=== PATIENT | male | born 1985 | race Caucasian/White ===

== ENCOUNTER 2017-01-23 14:28 | Emergency (ER) | payer OTHER ==
[~2017-01-23] VITALS: Ht 187.9 cm; Wt 108.9 kg
[~2017-01-23 14:28] MED LIST: CIPROFLOXACIN500 MG PO; MOTRIN800 MG PO; TOBRADEX 0.1%-0.5 ML OPH
[2017-01-23 14:44] VITALS: BP 146/98
[2017-01-23] MEDS ORDERED: CYCLOBENZAPRINE5 M3 PO (16:16)
[2017-01-23] MEDS ORDERED: PREDNISONE10 MG PO (16:16)
== END 2017-01-23 16:19 | disposition home or self-care (01) ==
LOC: ED 14:28
DX: M54.5 Low back pain (principal); F17.200 Nicotine dependence, unspecified, uncomplicated; Z88.1 Allergy status to other antibiotic agents

== ENCOUNTER 2017-11-20 16:02 | Inpatient (IN) | payer OTHER ==
[~2017-11-20] VITALS: Ht 190.5 cm; Wt 95.7 kg
--- NOTE | ~2017-11-20 | PR ---
[place], [place] PROGRESS NOTE NAME: BERNARDO ROBERTS UNIT #: [id number] ROOM: 405 DOCTOR: STANISLAV MURRAY MD,ADONAY BIRTHDATE: [birth year] DOS: 11/24/2017 SUBJECTIVE: He has been noted comfortable at this time, continued to show gradual reduction and improvement in the respiratory symptoms of coughing, shortness of breath. There were symptoms of wheezing described. There were symptoms of abdominal pain. OBJECTIVE: VITAL SIGNS: Normal temperature, respiratory rate 18, heart rate 60, blood pressure 131/81. Pulse oxygen saturation on room air 94% saturation. HEENT: No acute change. NECK: No acute change. CARDIOVASCULAR: S1, S2 is audible. LUNGS: The patient was noted without any wheeze or crackle. Good breath sounds noted bilaterally. ABDOMEN: Soft, nontender. EXTREMITIES: Without any acute edema. IMPRESSION: The patient with improving acute pneumonia, clinically and radiologically with improving exacerbation of bronchial asthma and chronic obstructive pulmonary disease. PLAN OF TREATMENT: No changes in the plan for the patient except recommendation of possible home discharge on oral medication would be considered. In the meantime, continue other therapy, plan of management as in progress. Usual care, other supportive plan of therapy and care. ADONAY COLORADO MD CM:PNTRANS [id number] ADONAY MURRAY MD 11/25/17 0143 interface
--- NOTE | ~2017-11-20 | CON ---
[place], [place] REPORT OF CONSULTATION NAME: BERNARDO ROBERTS UNIT #: [id number] ROOM: 405 DOCTOR: STANISLAV MURRAY MDADONAY BIRTHDATE: [birth year] DOS: 11/22/2017 PULMONARY CONSULTATION EVALUATION MANAGEMENT CONSULTATION REQUESTED BY: Hospitalist Services. REASON FOR CONSULTATION: I was asked to assess the patient for acute pneumonia. HISTORY OF PRESENT ILLNESS: This is a 32-year-old white male patient who has been admitted to the hospital under the care of the Hospitalist Services. The patient came into the hospital stating having ongoing symptoms of fever and chills with a cough and sore throat for the past 3 to 4 days. The symptoms had been noted worsening. The patient denies any symptoms of chest pain. The symptoms of shortness breath was reported with that, but there was no wheezing. The patient was sent to the ER from the [facility] for current ongoing acute symptom assessment. He has been admitted to the hospital currently for the medical management of acute pneumonia. REVIEW OF SYSTEMS: CONSTITUTIONAL SYMPTOMS: He was not feeling well, complaining of fatigue and tiredness with fever and chills at home and decreased appetite. EYES: Denies any burning, redness, tenderness. EARS, NOSE, THROAT SYMPTOMS: Denies sore throat, hoarseness, otalgia, postnasal drainage or epistaxis. CARDIOVASCULAR: Denies any angina pain, edema, pain of the lower extremities. GASTROINTESTINAL: There were symptoms of nausea and vomiting, this has been resolved. GENITOURINARY: Denies dysuria, suprapubic pain, or hematuria. MUSCULOSKELETAL: Denies acute joint pain, redness, or tenderness. SKIN: Denied lesions or rashes. CENTRAL NERVOUS SYSTEM: Dizziness, headache, diplopia with general weakness was reported. Remaining systems were reviewed. They were noted all negative. PAST MEDICAL HISTORY: Noted with a history of general anxiety disorder and depression. SOCIAL HISTORY: The patient stated that he is , lives at home, half a pack of cigarettes per day active use was reported and previously he smoked a pack of cigarettes per day as well. He does not have any children. Denies any occupation related to the dust exposure or other chemicals previously. FAMILY HISTORY: Both parents has been living without any major medical illnesses. HOME MEDICATIONS: Noted as none. DRUG ALLERGY HISTORY: 1. NOTED ALLERGY TO THE [facility]. [place], [place] REPORT OF CONSULTATION NAME: BERNARDO ROBERTS UNIT #: [id number] ROOM: 405 DOCTOR: STANISLAV MURRAY MD,ADONAY BIRTHDATE: [birth year] 2. IVP DYE. 3. DOXYCYCLINE. PHYSICAL EXAMINATION: GENERAL: This is a 32-year-old white male patient currently sitting on his bed without any acute distress at time of assessment. Height of 6 feet 2 inches, weight of 217 pounds, BMI 26. VITAL SIGNS: Temperature noted 101 degree Fahrenheit on admission of 11/20/2017 and gradually noted afebrile, respiratory rate 20, heart rate 55-68 noted 107 on admission, blood pressure 142/86 to 135/62. Pulse oxygen saturation on room air was 99%, 91% saturation. HEENT: Head was atraumatic. Eyes nonicterus. NECK: Supple. CARDIOVASCULAR: S1, S2 audible. LUNGS: The patient was noted without any wheeze or crackles at the present time. ABDOMEN: Soft, flat, nontender. Bowel sounds present. SKIN: No lesions or rashes. MUSCULOSKELETAL: Without any acute deformities. CENTRAL NERVOUS SYSTEM: Cranial nerves 2-12 intact. No focal deficit. LABORATORY DATA: CBC on 11/20/2017 on admission of WBC count 13.4, hemoglobin and hematocrit normal, platelet count normal. CMP of 31, glucose 108, BUN and creatinine were normal, potassium 3.4. Troponin 3 sets on admission were normal. CBC that was done yesterday normal. PT/INR normal yesterday. CMP yesterday noted essentially normal kidney function and the LFTs, CBC today: WBC count 17.6, hemoglobin 13.1, hematocrit 39.2, platelet count was normal. BMP this morning, glucose 157. Remaining labs were normal. The chest x-ray that was done on 11/20/2017 does not show any visible pulmonary infiltration. The CT scan of the chest on 11/20/2017 without contrast was noted with a small patchy infiltration in the right lower lung without any other acute abnormalities. IMPRESSION: 1. The patient was currently admitted to the hospital with acute pneumonia involving the right lower lobe with fever and chills. 2. Possible exacerbation of chronic obstructive pulmonary disease as well/ bronchial asthma with past history of nicotine dependence. PLAN OF MANAGEMENT: The patient was getting high dose Solu-Medrol at this time, the dose will be changed to 40 mg daily. Obtain a chest x-ray, PA and lateral view today as well to reassess. Consider possible home discharge the patient on oral antibiotic. The patient with the coverage of atypical organism. Since the patient's pneumonia could be related to either gram-positive cocci atypical organisms. Abstinence tobacco use was recommended to this patient. Supportive therapy, plan of management, other care. Bronchodilators could be given before discharge. [place], [place] REPORT OF CONSULTATION NAME: BERNARDO ROBERTS UNIT #: [id number] ROOM: 405 DOCTOR: STANISLAV MURRAY MD,ADONAY BIRTHDATE: [birth year] ADONAY COLORADO MD CM:CONSTR:REPORT OF CONSULTATION 0950 11/22/17 1024 interface
--- NOTE | ~2017-11-20 | PR ---
[place], [place] PROGRESS NOTE NAME: BERNARDO ROBERTS UNIT #: [id number] ROOM: 405 DOCTOR: ADONAY LOUISE MD BIRTHDATE: [birth year] DOS: 11/23/2017 PULMONARY PROGRESS NOTE SUBJECTIVE: He has been comfortably resting at this time. Cough has been noted still present, not completely resolved. There were no symptoms of chest pain or hemoptysis described by the patient. The patient denies symptoms of abdominal pain. OBJECTIVE: VITAL SIGNS: For the patient which has been recorded showed the blood pressure noted at 121/67, heart rate 75, respiratory rate 16, temperature normal. The pulse oxygen saturation of the patient was recorded as 96% saturation. HEENT: Showed head was atraumatic, eyes nonicterus. NECK: Supple. CARDIOVASCULAR: S1, S2 audible. LUNGS: Noted without any wheeze or crackles. ABDOMEN: Soft, nontender. EXTREMITIES: Without any acute edema. LABORATORY DATA: The culture of the sputum for the patient, preliminary, shows normal octavia from yesterday. The Gram stain shows many white blood cells with few epithelial cells, gram-positive cocci in pairs and gram-positive bacilli. Chest x-ray of the patient that was done this morning was reviewed personally, shows evidence of small linear atelectasis in the right middle and the right lower lobe. IMPRESSION: 1. The patient has been currently treated in the hospital, noted with gradual improvement in the response to the treatment with current medical management for the treatment of acute pneumonia with area of small subsegmental atelectasis. 2. Acute exacerbation of bronchial asthma and chronic obstructive pulmonary disease as well. PLAN OF TREATMENT: Continuation of bronchodilator with oxygen supplementation. Continuation of current dose of Solu-Medrol. Monitor respiratory status closely. No change in treatment for the patient will be done. Possible consideration for home discharge in the morning depending on further clinical improvement in the respiratory status. [place], [place] PROGRESS NOTE NAME: BERNARDO ROBERTS UNIT #: [id number] ROOM: 405 DOCTOR: ADONAY LOUISE MD BIRTHDATE: [birth year] ADONAY COLORADO MD CM:PNTRANS [id number] ADONAY MURRAY MD 11/24/17 0018 interface
[2017-11-20 16:02] VITALS: BP 119/78
[~2017-11-20 16:02] MED LIST changes: +CYCLOBENZAPRINE5 M3 PO; +PREDNISONE10 MG PO
[2017-11-20 16:51] LABS: HEMATOCRIT 44.6 % (42.0-52.0); HEMOGLOBIN 15.1 g/dl (14.0-18.0); MEAN CELL VOLUME 93.7 fl (80.0-94.0); MEAN CORPUSCULAR HGB 31.7 pg (27.0-31.0); MEAN CORPUSCULAR HGB CONC 33.9 g/dl (33.0-37.0); MEAN PLATELET VOLUME 10.5 fl (9.6-12.3); PLATELET COUNT AUTOMATED 194 10*3/uL (130-400); RED BLOOD COUNT 4.76 10*6/uL (4.50-5.90); WHITE BLOOD COUNT 13.4 10*3/uL (4.8-10.8)
[2017-11-20 17:07] LABS: ALBUMIN 3.8 gm/dl (3.1-4.5); ALKALINE PHOSPHATASE 67 U/L (45-117); BUN 12 mg/dl (7-24); CHLORIDE 107 mmol/L (98-107); CREATININE 1.02 mg/dL (0.70-1.30); POTASSIUM 3.4 mmol/L (3.5-5.1); SGOT/AST 23 IU/L (3-35); SGPT/ALT 42 U/L (12-78); SODIUM 140 mmol/L (136-145); TOTAL PROTEIN 7.1 gm/dL (6.4-8.2)
[2017-11-20 17:10] LABS: BURR CELLS FEW; PLATELET SUFFICIENCY NORMAL (NORMAL); TOTAL CELLS COUNTED 100 #CELLS
[2017-11-20 17:42] VITALS: BP 113/67
[2017-11-20] MEDS ORDERED: CYCLOBENZAPRINE10 MG PO (18:13)
[2017-11-20] MEDS ORDERED: HYDROXYZINE PAM50 MG PO (18:13)
[2017-11-20] MEDS ORDERED: ANTI-DIARRHEAL2 MG PO (18:14)
[2017-11-20] MEDS ORDERED: ONDANSETRON4 M1 PO (18:14)
[2017-11-20] MEDS ORDERED: OMEPRAZOLE40 MG PO (18:14)
[2017-11-20] MEDS ORDERED: RISPERIDONE2 M2 PO (18:16)
[2017-11-20] MEDS ORDERED: PRAZOSIN HCL2 MG PO (18:16)
[2017-11-20 19:06] VITALS: BP 117/65
[2017-11-20 20:00] VITALS: BP 117/65
[2017-11-21] VITALS: BP 103/62
[2017-11-21 06:58] LABS: BASO % 0.1 % (0.0-1.0); HEMATOCRIT 40.2 % (42.0-52.0); HEMOGLOBIN 13.8 g/dl (14.0-18.0); LYMPH # 1.1 10*3/uL (1.3-4.4); LYMPH % 11.2 % (27.0-41.0); MEAN CELL VOLUME 94.8 fl (80.0-94.0); MEAN CORPUSCULAR HGB 32.5 pg (27.0-31.0); MEAN CORPUSCULAR HGB CONC 34.3 g/dl (33.0-37.0); MEAN PLATELET VOLUME 10.5 fl (9.6-12.3); MONO # 0.2 10*3/uL (0.1-1.0); MONO % 1.5 % (3.0-9.0); NEUT # 8.7 10*3/uL (2.3-7.9); NEUT % 86.7 % (47.0-73.0); PLATELET COUNT AUTOMATED 183 10*3/uL (130-400); RED BLOOD COUNT 4.24 10*6/uL (4.50-5.90); RED CELL DISTRI WIDTH 13.2 % (0-14.5)
[2017-11-21 07:14] LABS: ALBUMIN 3.2 gm/dl (3.1-4.5); BUN 9 mg/dl (7-24); CHLORIDE 115 mmol/L (98-107); CHOLESTEROL 141 mg/dL (<200); CREATININE 1.02 mg/dL (0.70-1.30); PHOSPHOROUS 1.5 mg/dL (2.5-4.9); SGOT/AST 17 IU/L (3-35); SGPT/ALT 33 U/L (12-78); SODIUM 145 mmol/L (136-145); TRIGLYCERIDES 75 mg/dl (<150); VLDL CHOLESTEROL 15 mg/dL (6-40)
[2017-11-21 07:16] LABS: ALKALINE PHOSPHATASE 57 U/L (45-117); HDL CHOLESTEROL 33 mg/dl (40-60); LDL CHOLESTEROL 93 mg/dL (9-159); TOTAL PROTEIN 6.3 gm/dL (6.4-8.2)
[2017-11-21 08:00] VITALS: BP 110/67
[2017-11-21 08:54] LABS: VITAMIN D, 25-HYDROXY 25.6 ng/mL (30-100)
[2017-11-21 12:00] VITALS: BP 124/88
[2017-11-21 16:00] VITALS: BP 135/76
[2017-11-21 20:00] VITALS: BP 115/91
[2017-11-22] VITALS: BP 135/92
[2017-11-22 06:18] LABS: BASO % 0.1 % (0.0-1.0); HEMATOCRIT 39.2 % (42.0-52.0); HEMOGLOBIN 13.1 g/dl (14.0-18.0); LYMPH # 1.4 10*3/uL (1.3-4.4); MEAN CORPUSCULAR HGB 31.4 pg (27.0-31.0); MEAN CORPUSCULAR HGB CONC 33.4 g/dl (33.0-37.0); MEAN PLATELET VOLUME 11.1 fl (9.6-12.3); MONO # 0.5 10*3/uL (0.1-1.0); NEUT # 15.5 10*3/uL (2.3-7.9); NEUT % 88.1 % (47.0-73.0); PLATELET COUNT AUTOMATED 231 10*3/uL (130-400); RED BLOOD COUNT 4.17 10*6/uL (4.50-5.90); RED CELL DISTRI WIDTH 13.3 % (0-14.5); WHITE BLOOD COUNT 17.6 10*3/uL (4.8-10.8)
[2017-11-22 06:38] LABS: BUN 10 mg/dl (7-24); CHLORIDE 113 mmol/L (98-107); CREATININE 0.74 mg/dL (0.70-1.30); PHOSPHOROUS 2.6 mg/dL (2.5-4.9); POTASSIUM 3.8 mmol/L (3.5-5.1); SODIUM 143 mmol/L (136-145)
[2017-11-22 08:00] VITALS: BP 142/86
[2017-11-22 12:00] VITALS: BP 142/86
[2017-11-22 16:00] VITALS: BP 114/69
[2017-11-22 20:00] VITALS: BP 133/65
[2017-11-23] VITALS: BP 136/65
[2017-11-23 08:00] VITALS: BP 121/64
[2017-11-23 12:00] VITALS: BP 121/67
[2017-11-23 16:00] VITALS: BP 120/62
[2017-11-23 20:00] VITALS: BP 130/83
[2017-11-24] VITALS: BP 148/81
[2017-11-24 08:00] VITALS: BP 131/81
[2017-11-24 12:00] VITALS: BP 132/86
[2017-11-24] MEDS ORDERED: PROAIR HFA8.5 GM INH (12:54)
[2017-11-24] MEDS ORDERED: GUAIFENESIN-COD10 ML PO (12:54)
[2017-11-24] MEDS ORDERED: PREDNISONE10 MG PO (12:54)
[2017-11-24] MEDS ORDERED: LEVAQUIN750 M1 PO (12:54)
== END 2017-11-24 14:02 | disposition home or self-care (01) | DRG 871 ==
LOC: ED 16:02 → 4E 18:03 → EDHOLD 18:03 → 4E 18:11
PROVIDERS: Hospitalist; Internal Medicine Nephrology; Physician Assistant
DX: A41.9 Sepsis, unspecified organism (principal); J96.01 Acute respiratory failure with hypoxia; J44.0 Chronic obstructive pulmonary disease with (acute) lower respiratory infection; J18.1 Lobar pneumonia, unspecified organism; E83.39 Other disorders of phosphorus metabolism; J45.901 Unspecified asthma with (acute) exacerbation; J98.11 Atelectasis; R65.20 Severe sepsis without septic shock; F41.1 Generalized anxiety disorder; F32.9 Major depressive disorder, single episode, unspecified; F17.210 Nicotine dependence, cigarettes, uncomplicated; F12.10 Cannabis abuse, uncomplicated; E87.6 Hypokalemia; Z86.39 Personal history of other endocrine, nutritional and metabolic disease; Z98.890 Other specified postprocedural states; Z71.6 Tobacco abuse counseling; Z88.8 Allergy status to other drugs, medicaments and biological substances; Z91.041 Radiographic dye allergy status; Z79.899 Other long term (current) drug therapy; Z81.8 Family history of other mental and behavioral disorders

== ENCOUNTER 2018-03-29 18:11 | Emergency (ER) | payer OTHER ==
[~2018-03-29] VITALS: Ht 193 cm; Wt 99.8 kg
[~2018-03-29 18:11] MED LIST changes: +ANTI-DIARRHEAL2 MG PO; +CYCLOBENZAPRINE10 MG PO; +GUAIFENESIN-COD10 ML PO; +HYDROXYZINE PAM50 MG PO; +LEVAQUIN750 M1 PO; +OMEPRAZOLE40 MG PO; +ONDANSETRON4 M1 PO; +PRAZOSIN HCL2 MG PO; +PROAIR HFA8.5 GM INH; +RISPERIDONE2 M2 PO
[2018-03-29] MEDS ORDERED: IBUPROFEN600 MG PO (19:04)
== END 2018-03-29 19:16 | disposition home or self-care (01) ==
LOC: ED 18:11
DX: S05.02XA Injury of conjunctiva and corneal abrasion without foreign body, left eye, initial encounter (principal); Z88.1 Allergy status to other antibiotic agents; Z88.8 Allergy status to other drugs, medicaments and biological substances; Z91.041 Radiographic dye allergy status; Z87.891 Personal history of nicotine dependence; W20.8XXA Other cause of strike by thrown, projected or falling object, initial encounter; Y93.89 Activity, other specified; Y92.009 Unspecified place in unspecified non-institutional (private) residence as the place of occurrence of the external cause; Y99.8 Other external cause status

== ENCOUNTER 2019-01-13 10:29 | Emergency (ER) | payer OTHER ==
[~2019-01-13] VITALS: Ht 190.5 cm; Wt 101.2 kg
[~2019-01-13 10:29] MED LIST changes: +IBUPROFEN600 MG PO
[2019-01-13 11:26] LABS: BASO # 0.1 10*3/uL (0.0-0.1); BASO % 0.6 % (0.0-1.0); EOS % 0.2 % (1.0-4.0); HEMATOCRIT 51.3 % (42.0-52.0); HEMOGLOBIN 17.5 g/dl (14.0-18.0); LYMPH # 1.8 10*3/uL (1.3-4.4); LYMPH % 9.1 % (27.0-41.0); MEAN CELL VOLUME 93.3 fl (80.0-94.0); MEAN CORPUSCULAR HGB 31.8 pg (27.0-31.0); MEAN CORPUSCULAR HGB CONC 34.1 g/dl (33.0-37.0); MEAN PLATELET VOLUME 9.9 fl (9.6-12.3); MONO # 0.9 10*3/uL (0.1-1.0); MONO % 4.8 % (3.0-9.0); NEUT # 16.6 10*3/uL (2.3-7.9); NEUT % 84.9 % (47.0-73.0); PLATELET COUNT AUTOMATED 270 10*3/uL (130-400); RED CELL DISTRI WIDTH 12.8 % (0-14.5); WHITE BLOOD COUNT 19.6 10*3/uL (4.8-10.8)
[2019-01-13 11:40] LABS: ALBUMIN 4.8 gm/dl (3.1-4.5); ALKALINE PHOSPHATASE 84 U/L (45-117); BUN 16 mg/dl (7-24); CHLORIDE 110 mmol/L (98-107); CREATININE 1.25 mg/dL (0.70-1.30); POTASSIUM 3.9 mmol/L (3.5-5.1); SGOT/AST 15 IU/L (3-35); SGPT/ALT 28 U/L (12-78); SODIUM 141 mmol/L (136-145); TOTAL PROTEIN 8.2 gm/dL (6.4-8.2)
[2019-01-13 11:45] LABS: ETHYL ALCOHOL < 3.0 mg/dl (<3)
[2019-01-13 13:51] LABS: URINE AMPHETAMINES < 1000 (1000ng/ml); URINE BARBITURATES < 200 (200ng/ml); URINE BENZODIAZEPINES < 200 (200ng/ml); URINE CANNABINOIDS (THC) > 50 (50ng/ml); URINE COCAINE < 300 (300ng/ml); URINE METHADONE < 300 (300ng/ml); URINE OPIATES < 300 (300ng/ml)
[2019-01-13 13:52] LABS: BILIRUBIN NEGATIVE (NEGATIVE); BLOOD NEGATIVE (NEGATIVE); CLARITY SL CLOUDY (CLEAR); COLOR YELLOW (YELLOW); GLUCOSE NEGATIVE (NEGATIVE); KETONE NEGATIVE (NEGATIVE); LEUKO ESTERASE NEGATIVE (NEGATIVE); NITRITE NEGATIVE (NEGATIVE); URINE PHENCYCLIDINE < 25 (25ng/ml); UROBILINOGEN 0.2 E.U./dl (0.2-1.0)
[2019-01-13 13:58] LABS: BACTERIA TRACE; EPITHELIAL CELLS 0-2; MUCOUS 1+; WBC 0-2 wbc/hpf (0-5)
== END 2019-01-13 14:06 | disposition home or self-care (01) ==
LOC: ED 10:29
PROVIDERS: Emergency Medicine
DX: F32.9 Major depressive disorder, single episode, unspecified (principal); E78.00 Pure hypercholesterolemia, unspecified; F12.10 Cannabis abuse, uncomplicated; F17.210 Nicotine dependence, cigarettes, uncomplicated; Z91.041 Radiographic dye allergy status; Z79.899 Other long term (current) drug therapy; Z88.1 Allergy status to other antibiotic agents; Z79.2 Long term (current) use of antibiotics